=== PATIENT | female | born 1975 | race African-American/Black ===

== ENCOUNTER → 2016-11-04 | Outpatient (CLI) | payer OTHER ==
[~2016-11-04] MED LIST: CYANOCOBALAMIN; TYLENOL
--- NOTE | 2016-11-04 15:13 | RADRPT ---
PROCEDURE: XR right knee. CLINICAL INDICATION: Knee pain TECHNIQUE: AP weightbearing, lateral weightbearing and sunrise views are available for review. COMPARISON: None available FINDINGS: There is mild osteoarthrosis involving the medial tibial femoral compartment and patellofemoral comp artment. This is associated with osteophytosis. There is otherwise normal mineralization, architecture and alignment. No fractures are identified. No osseous lesions are identified. The soft tissues are unremarkable. IMPRESSION: Mild osteoarthrosis involving the medial tibial femoral compartment and patellofemoral compartment. RPTAT: HGDB .Apollo Smith MD, Date Time Electronically viewed and signed by .Apollo Smith MD, on 11/04/2016 15:12 .B/
--- NOTE | 2016-11-04 20:29 | HKNOTE ---
DATE OF SERVICE: MAIN COMPLAINT: Pain in her right knee. HISTORY OF MAIN COMPLAINT: The patient is a 41-year-old female who has had pain her right knee "on and off for many years." There is no history of injury to the knee. She has not seen another ortho pedic surgeon about her knee. She is referred by Dr. Rei Salazar from the [facility] for an evaluation of her knee. PRESENT COMPLAINTS: She has pain in the anterior aspect of the right knee. Pain is described as be ing moderate. Pain is aggravated by stair climbing and squatting. She occasionally gets rest pain, she does not get night pain. Her knee is worse in bad weather. Lara whelan gets her pain "perhaps once a week." Sometimes she goes for 2 weeks without any pain. The knee o ccasionally swells, there is no locking. Occasionally the knee feels unstable. She never has to use a walking aid. On a bad day, she can walk maybe 2 to 3 blocks at a time. On a good day, she can w alk several miles if she needs to. She has a history of scoliosis. She does not have any numbness or tingling in her legs. She occasionally limps. She does not have a shoe lift. She can clip her toenails and tie her shoelaces. PAST ORTHOPEDIC HISTORY: The patient took a fall at work approximately 1 year ago; she fell off a c hair. She had pain in her right buttocks radiating down her right leg. [facility] doctor. She had an epidural injection and physical therapy. She was off work "for a few da ys." All of that has now resolved. PREVIOUS ORTHOPEDIC OPERATIONS: None. PRIOR CORTISONE INTAKE: Two epidurals. ALCOHOL INTAKE: None. OTHER JOINT PROBLEMS: None. BLOOD TESTS FOR ARTHRITIS: None. PRIOR INJURIES TO HIPS OR KNEES: None other than above. WORK STATUS: Patient is a "therapist." PAST MEDICAL HISTORY: Negative. PAST SURGICAL HISTORY: Negative. ALLERGIES TO MEDICATIONS: NONE. MEDICATIONS: Iron 3 times a week for anemia. PRIOR MAJOR INJURIES: None. FAMILY HISTORY: Noncontributory. SYSTEMS REVIEW: Patient did not complete. PHYSICAL EXAMINATION GENERAL: A fit-looking and youthful 41-year-old female. VITAL SIGNS: She is overweight. Her weight, height is 5 foot 4 inches and her weight is 215 pound s, blood pressure 100/60, temperature 98.5. GAIT: Walks without a walking aid. Her gait is normal. HIPS: Both hips have full range of motion without pain. RIGHT KNEE: The right knee shows normal alignment. Active and passive extension is 0 degrees. Pain on forced flexion and passive flexion is 135 degrees. 1+ effusion. The medial and lateral collatera l ligaments and cruciate ligaments are intact. Carmelina test is negative. There is no effusion, tende rness, scarring, crepitus, or cysts. The patella tracks normally. There is no tenderness on the anup cular surface of the patella or in the patellar groove. The Q angle is normal. IMAGING: Plain x-rays of the right knee obtained today were reviewed (3 views). These show a sma ll bone spur on the lateral aspect of the patella; otherwise, the knee is entirely normal. DIAGNOSES 1. Possible internal derangement of the right knee 2. Obesity. MANAGEMENT: The patient is being referred for an MRI scan of the knee and she will be seen thereaft er for further evaluation and treatment. Dictated By: AMINAH GODWIN/WOODROW Conf#: [id number] DID#: [id number]
--- NOTE | 2016-11-04 20:32 | HKNOTE ---
DATE OF SERVICE: Rei Pulliam MD [facility] [address] [place] [address] Pulliam: Thank you for referring Lizbeth Callahan, who was seen in my office today complaining of pain in her right knee. Her symptoms do seem to be particularly severe, but she has had them for several years and they incl ude swelling of the knee and occasional instability of the knee. She has pain over the anterior asp ect of the knee. The x-rays are normal. The symptoms suggest that she may have an internal derangement of the knee, such as a torn meniscus. She is being referred for an MRI of the knee and further treatment will depend upon the findings. Thank you for your confidence in referring her to my care. With warmest regards, Dictated By: AMINAH GODWIN/WOODROW Conf#: [id number] DID#: [id number]
== END | disposition home or self-care (01) ==
LOC: HKI 14:51
DX: M25.561 Pain in right knee (principal); E66.9 Obesity, unspecified; M76.891 Other specified enthesopathies of right lower limb, excluding foot; M25.461 Effusion, right knee; M25.361 Other instability, right knee; Z91.81 History of falling
CPT/HCPCS: 73562; Z7500; G0463

== ENCOUNTER → 2017-06-15 | Outpatient (CLI) | payer OTHER ==
--- NOTE | 2017-06-15 18:01 | RADRPT ---
PROCEDURE: Right knee radiographs. CLINICAL INDICATION: Right knee pain. TECHNIQUE: Four views. Weight bearing. Frontal, lateral, oblique, and patellar view. COMPARISON: 11/04/2016. FINDINGS: There is no fracture or dislocation. The soft tissues are normal. The articular surfaces are intact. There are small osteophytes arising from the joint margins. There is no lytic or blastic lesion. There is no radiopaque foreign body. IMPRESSION: 1. Mild degenerative changes of the right knee. 2. Otherwise normal images of the right knee. 3. No change from 11/04/2016. RPTAT: QQ .Navin Perales MD, MD Date Time Electronically viewed and signed by .Navin Perales MD, MD on 06/15/2017 18:00 .R/
--- NOTE | 2017-06-16 06:40 | HKNOTE ---
DATE OF SERVICE: 06/15/2017 CHIEF COMPLAINT: Right knee pain. HISTORY OF PRESENT ILLNESS: This is a 41-year-old female who is complaining of chronic pain in the right knee. The pain has been worsening over the last few months. She was previously seen by Dr. Frey and scheduled for an MRI of the right knee. She did not receive an MRI. She does not use any assist devices. She does not use any braces. She takes ibuprofen for pain control. She has difficulty with long distance ambulation. She has occasional instability of her knee. She has swelling of her knee. She denies any locking or catching. She denies any groin or back pain. GAIT: Nonantalgic gait. No use of assist device. RIGHT KNEE: Neutral alignment. Tender over the medial joint line. Nontender over the lateral joint line. 0 to 130 degrees range of motion. 1+ effusion. Negative Carmelina. Negative anterior drawer. Negative posterior drawer. Negative Alma's. MOTOR STRENGTH: 5/5 hamstrings, quadriceps, tibialis anterior, gastroc soleus, peroneals. DIAGNOSTIC DATA: X-ray of the right knee: Three views of the right knee demonstrate no abnormality. IMPRESSION: A 41-year-old female with a right knee strain. PLAN: We will request authorization for MRI of the right knee. She will call to make a follow-up appointment following her MRI. Dictated By: YVONNE JACOB/WOODROW Conf#: [id number] DID#: [id number] MTDD
== END | disposition home or self-care (01) ==
LOC: HKI 14:52
PROVIDERS: ATTEND Orthopaedic Surgery Adult Reconstructive Orthopaedic Surgery
DX: S86.911A Strain of unspecified muscle(s) and tendon(s) at lower leg level, right leg, initial encounter (principal); X58.XXXA Exposure to other specified factors, initial encounter
CPT/HCPCS: 73564; Z7500; G0463

== ENCOUNTER → 2017-07-13 | Outpatient (CLI) | payer OTHER ==
--- NOTE | 2017-07-14 02:29 | HKNOTE ---
DATE OF SERVICE: 07/13/2017 CHIEF COMPLAINT: Right knee pain. HISTORY OF PRESENT ILLNESS: This is a 41-year-old obese female who is here for followup of her [facility]. She is complaining of pain in the right knee. She has not begun physical therapy. She states that the pain is constant. There are no alleviating factors. She denies any locking, catch ing or instability. GAIT: Nonantalgic gait, reciprocal gait pattern. PHYSICAL EXAMINATION: RIGHT KNEE: Nontender over the medial and lateral joint lines, 0 to 120 degr ee range of motion, stable to varus and valgus stress, negative Carmelina, negative anterior drawer, n egative posterior drawer, negative Alma test. Motor strength 5/5, hamstrings, quadriceps, tibia lis anterior, gastrocsoleus. MRI right knee: There is chondromalacia with loss of patellar cartilage of the lateral facets. No meniscal or collateral cruciate ligament tear is seen. 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 PLAN: We will request authorization for physical therapy. I discussed weight loss with the patient . She can take ibuprofen for pain control. She will follow up with me as needed in the future. Dictated By: YVONNE JACOB/WOODROW Conf#: [id number] DID#: [id number]
--- NOTE | 2017-07-14 02:29 | HKNOTE ---
DATE OF SERVICE: 07/13/2017 CHIEF COMPLAINT: Right knee pain. HISTORY OF PRESENT ILLNESS: This is a 41-year-old obese female who is here for followup [facility]. She is complaining of pain in the right knee. She has not begun physical therapy. She states that the pain is constant. There are no alleviating factors. She denies any locking, catch ing or instability. GAIT: Nonantalgic gait, reciprocal gait pattern. PHYSICAL EXAMINATION: RIGHT KNEE: Nontender over the medial and lateral joint lines, 0 to 120 degr ee range of motion, stable to varus and valgus stress, negative Carmelina, negative anterior drawer, n egative posterior drawer, negative Alma test. Motor strength 5/5, hamstrings, quadriceps, tibia lis anterior, gastrocsoleus. MRI right knee: There is chondromalacia with loss of patellar cartilage of the lateral facets. No meniscal or collateral cruciate ligament tear is seen. 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 PLAN: We will request authorization for physical therapy. I discussed weight loss with the patient . She can take ibuprofen for pain control. She will follow up with me as needed in the future. Dictated By: YVONNE JACOB/WOODROW Conf#: [id number] DID#: [id number]
--- NOTE | 2017-07-14 02:29 | HKNOTE ---
DATE OF SERVICE: 07/13/2017 CHIEF COMPLAINT: Right knee pain. HISTORY OF PRESENT ILLNESS: This is a 41-year-old obese female who [facility] She is complaining of pain in the right knee. She has not begun physical therapy. She states that the pain is constant. There are no alleviating factors. She denies any locking, catch ing or instability. GAIT: Nonantalgic gait, reciprocal gait pattern. PHYSICAL EXAMINATION: RIGHT KNEE: Nontender over the medial and lateral joint lines, 0 to 120 degr ee range of motion, stable to varus and valgus stress, negative Carmelina, negative anterior drawer, n egative posterior drawer, negative Alam test. Motor strength 5/5, hamstrings, quadriceps, tibia lis anterior, gastrocsoleus. MRI right knee: There is chondromalacia with loss of patellar cartilage of the lateral facets. No meniscal or collateral cruciate ligament tear is seen. 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 PLAN: We will request authorization for physical therapy. I discussed weight loss with the patient . She can take ibuprofen for pain control. She will follow up with me as needed in the future. Dictated By: YVONNE JACOB/WOODROW Conf#: [id number] DID#: [id number]
== END | disposition home or self-care (01) ==
LOC: HKI 15:34
PROVIDERS: ATTEND Orthopaedic Surgery Adult Reconstructive Orthopaedic Surgery
DX: M94.261 Chondromalacia, right knee (principal)
CPT/HCPCS: G0463